=== PATIENT | male | born 1965 | race Caucasian/White ===

== ENCOUNTER 2017-09-20 11:21 | Emergency (ER) | payer BC, SELFPAY | END 2017-09-20 15:31 | disposition home or self-care (01) | PROVIDERS: Emergency Provider Emergency Medicine; Visit Provider Emergency Medicine | DX: J10.00 Influenza due to other identified influenza virus with unspecified type of pneumonia (principal); F17.210 Nicotine dependence, cigarettes, uncomplicated; J44.9 Chronic obstructive pulmonary disease, unspecified; R59.1 Generalized enlarged lymph nodes | CPT/HCPCS: 71020; 71275; 74022; 80053; 82803; 83605; 85025; 87040; 87486; 87581; 87633; 87798; 94640; 96365; 96366; Q9967 ==

== ENCOUNTER → 2021-04-12 08:23 | Outpatient (CLI) | payer OTHER, SELFPAY ==
--- NOTE | 2021-04-12 08:26 | CT_ITS ---
PROCEDURE: CT CHEST WO CON CLINCAL INDICATION: HX OF NICOTINE USE COMPARISON: CT CTAC CTA-CHEST from 09/20/2017 TECHNIQUE: Unenhanced CT chest with axial, coronal, and sagittal multiplanar reformations. Dose modulation, automated exposure control, and/or iterative reconstruction were used for dose reduction. FINDINGS: LUNGS:Minor apical pleural scarring is noted. No lobar consolidation, pleural effusions or pneumothorax. No suspicious lung nodules are noted. The central tracheobronchial tree is patent. HEART / GREAT VESSELS Heart:The heart is normal size without pericardial effusion. Vessels: The thoracic aorta is unremarkable. MEDIASTINUM Mediastinum: Few scattered mediastinal lymph nodes, not significant by size criteria. Evaluation of the zehra is limited due to lack of intravenous contrast. No gross lymphadenopathy is noted. UPPER ABDOMEN: Abdomen:Small hiatus hernia is noted. Otherwise unremarkable, allowing for the noncontrast technique. BONES Bones: Unremarkable Thyroid: The visualized thyroid gland is unremarkable Other IMPRESSION: No acute intrathoracic abnormality. Dictated by: Kiesha Allen 04/12/2021 09:16 Kiesha Allen in [place] 04/12/2021 09:16
== END ==
PROVIDERS: PCP Internal Medicine Adolescent Medicine; Visit Provider Internal Medicine Adolescent Medicine
DX: Z87.891 Personal history of nicotine dependence (principal); Z12.2 Encounter for screening for malignant neoplasm of respiratory organs
CPT/HCPCS: 71250

== ENCOUNTER 2024-11-07 09:20 | Outpatient (CLI) | payer BC, SELFPAY ==
--- NOTE | 2024-11-07 | XR_ITS ---
FINAL REPORT CLINICAL HISTORY: SWELLING AND PAIN FINDINGS: AP, oblique, and lateral views of the left wrist were obtained. There is no prior exam for comparison. There is no acute fracture or dislocation. 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 There is soft tissue edema at the wrist. IMPRESSION: No acute osseous abnormality of the left wrist. Degenerative joint disease. Consider MRI for further evaluation. Reviewed, Interpreted and Dictated by Cecy Ruffin MD Transcribed by Gale Braxton Authenticated and [facility]
[2024-11-07 09:48] LABS: Basophils # 0.1 K/mm3 (0-0.2); Basophils % 1.9 % (0.1-2.0); Eosinophils # 0.1 K/mm3 (0.0-0.4); Eosinophils % 1.4 % (0.1-12.0); Hematocrit 47.9 % (42.0-52.0); Hemoglobin 16.6 g/dL (14.1-18.0); Lymphocytes # 0.9 K/mm3 (0.7-4.5); Lymphocytes % 13.3 % (10-50); Mean Corpuscular HGB Conc 34.7 g/dL (31.8-35.4); Mean Corpuscular Hemoglobin 33.9 pg (27.0-31.2); Mean Corpuscular Volume 97.8 fl (80-94); Mean Platelet Volume 9.8 fl (7.4-10.4); Monocytes # 0.7 K/mm3 (0.1-1.0); Monocytes % 9.7 % (1.7-9.3); Neutrophils # 5.1 K/mm3 (1.8-7.8); Neutrophils % 73.4 % (37.0-80.0); Platelet Count 228 K/mm3 (142-424); Red Cell Distribution Width 12.7 % (11.5-17.5)
[2024-11-07 10:18] LABS: Albumin Level 4.3 g/dl (3.5-5.0); Chloride 100 mmol/L (98-107); Potassium 5.4 mmoL/L (3.5-5.1); Sodium 135 mmol/L (136-145)
[2024-11-07 10:21] LABS: Alanine Aminotransferase 29 U/L (12-78); Albumin/Globulin Ratio 1.7 (1.1-1.8); Alkaline Phosphatase 98 U/L (38-126); Anion Gap 9.4 mEq/L (5-15); Aspartate Amino Transferase 35 U/L (17-59); Bilirubin,Total 0.6 mg/dl (0.2-1.3); Blood Urea Nitrogen 6 mg/dl (9-20); Calcium 9.3 mg/dl (8.4-10.2); Carbon Dioxide 31 mmol/L (22.0-30.0); Estimated Glomerular Filt Rate 99 ml/min (>60); GFR (African American) 120 ML/MIN (>60); Globulin 2.5 g/dL (1.3-3.2); Glucose 174 mg/dl (74-100); Total Protein,Serum 6.8 g/dl (6.3-8.2)
[2024-11-07 10:27] LABS: C-Reactive Protein 4.4 mg/L (0-4)
[2024-11-07 10:46] LABS: Uric Acid 7.6 mg/dl (3.5-8.5)
[2024-11-07 11:58] LABS: Erythrocyte Sedimentation Rate 4 mm/hr (0-20)
[2024-11-08 07:24] LABS: RA Latex Turbid. 18.8 IU/mL (<14.0)
[2024-11-09 19:15] LABS: Hemoglobin A1C 4.9 % (4.0-6.0)
== END 2024-11-07 23:59 | disposition home or self-care (01) ==
PROVIDERS: PCP Nurse Practitioner Family; Visit Provider Nurse Practitioner Family
DX: M25.532 Pain in left wrist (principal); M25.432 Effusion, left wrist
CPT/HCPCS: 36415; 73110; 80053; 83036; 84550; 85025; 85651; 86140; 86431